=== PATIENT | female | born 1935 | race Caucasian/White ===

== ENCOUNTER 2017-07-01 17:43 | Observation (INO) | payer MEDICARE, BC ==
[2017-07-01] MEDS ORDERED: IPRATROPIUM/ALBUTEROL (0.5MG/3MG) NEB INH ONE (17:51)
[2017-07-01] MEDS ORDERED: METHYLPREDNISOLONE PF 125MG/VIAL IVP ONE (18:19)
--- NOTE | 2017-07-01 18:23 | Emergency Department Record ---
History of Present Illness - General Chief Complaint: Cough Stated Complaint: SANKET Time Seen by Provider: 07/01/17 18:12 Source: Patient, Family Mode of Arrival: Ambulatory Limitations: No limitations - History of Present Illness Initial Comments: 81 yo female presents with a cough, short of breath and feeling tired since Thursday. She has a history of asthma. She has used her nebulizer 2 times daily without improvement. She is not a smoker. No history of CAD. Her cough is fairly persistent. It is non productive. No fever. No chest pain. She does note be short of breath with normal house hold activity. PCP is in [place]. MD Complaint: Cough Onset/Timin -: Days(s) (4) Quality: Other Consistency: Constant Improves With: Rest Worsens With: Activity Associated Symptoms: Cough, Other (weak, tired, dizzy, ) Treatments Prior to Arrival: Other (Nebulizer) - Related Data Home Medications Medication Instructions Recorded Confirmed Last Taken Ranitidine HCl [Zantac] 150 mg PO DAILY 07/01/17 07/01/17 Unknown Allergies Allergy/AdvReac Type Severity Reaction Status Date / Time No Known Allergies Allergy no Verified 07/01/17 18:35 allergies Travel Screening - Travel/Exposure Within Last 30 Days Have you traveled within the last 30 days?: No Review of Systems Constitutional: Reports: Malaise, Weakness. Denies: Chills, Fever Eyes: Denies: Eye discharge, Eye pain, Photophobia, Vision change ENT: Reports: Congestion. Denies: Throat pain Respiratory: Reports: Cough, Dyspnea, Wheezes. Denies: Stridor Cardiovascular: Denies: Chest pain, Palpitations, Syncope Endocrine: Reports: Polydipsia. Denies: Fatigue, Polyuria Gastrointestinal: Denies: Abdominal pain, Constipation, Diarrhea, Nausea, Vomiting Genitourinary: Denies: Dysuria, Urgency Musculoskeletal: Denies: Arthralgia, Back pain, Joint swelling, Myalgia Skin: Denies: Bruising, Change in color, Rash Neurological: Reports: Vertigo, Weakness. Denies: Abnormal gait, Confusion, Headache, Numbness, Paresthesias, Tingling, Tremors Psychiatric: Denies: Anxiety Hematological/Lymphatic: Denies: Blood Clots, Easy bleeding, Easy bruising, Swollen glands Past Medical History - SOCIAL HISTORY Smoking Status: Never smoker Alcohol Use: None Drug Use: None - RESPIRATORY Hx Respiratory Disorders: Yes Hx Asthma: Yes - CARDIOVASCULAR Hx Cardio Disorders: No - NEURO Hx Neuro Disorders: No - GI Hx GI Disorders: Yes Hx Reflux: Yes - Hx Genitourinary Disorders: No - ENDOCRINE Hx Endocrine Disorders: No - MUSCULOSKELETAL Hx Musculoskeletal Disorders: No - PSYCH Hx Psych Problems: No - HEMATOLOGY/ONCOLOGY Hx Hematology/Oncology Disorders: No Family Medical History Any Significant Family History?: No Physical Exam - General General Appearance: Alert, Oriented x3, Cooperative, No acute distress Limitations: No limitations - Head Head exam: Normal inspection - Eye Eye exam: Normal appearance, PERRL. negative: Conjunctival injection, Scleral icterus - ENT ENT exam: Normal exam, Mucous membranes moist Ear exam: Normal external inspection Nasal Exam: Discharge (clear) Mouth exam: Normal external inspection Teeth exam: Normal inspection. negative: Dental caries Throat exam: negative: Normal inspection, Tonsillar erythema, Tonsillomegaly, R peritonsillar mass - Neck Neck exam: Normal inspection, Full ROM. negative: Tenderness - Respiratory Respiratory exam: Decreased breath sounds, Prolonged expiratory, Rhonchi, Wheezes. negative: Normal lung sounds bilaterally, Accessory muscle use, Respiratory distress, Stridor - Cardiovascular Cardiovascular Exam: Normal rhythm, Tachycardia Peripheral Pulses: 2+: Radial (R), Radial (L) - GI/Abdominal GI/Abdominal exam: Soft. negative: Guarding, Rigid, Tenderness - Rectal Rectal exam: Deferred - exam: Deferred - Extremities Extremities exam: Normal inspection, Full ROM, Normal capillary refill. negative: Tenderness - Back Back exam: Reports: Normal inspection, Full ROM. Denies: Muscle spasm, Rash noted, Tenderness - Neurological Neurological exam: Alert, Normal gait, Oriented X3 - Psychiatric Psychiatric exam: Normal affect, Normal mood - Skin Skin exam: Dry, Intact, Normal color, Warm Course Vital Signs 07/01/17 07/01/17 07/01/17 17:44 17:52 17:55 Temperature 100.1 F H Pulse Rate 115 H 88 Pulse Rate [ 107 H Pulse Ox Probe] Respiratory 18 16 Rate Blood Pressure 141/69 Pulse Ox 88 L 94 L 94 L - Reevaluation(s) Reevaluation #1: EKG sinus tachycardia rate 127, intervals normal, axis left, ST NS changes, poor R wave. 07/01/17 18:59 07/01/17 19:08 The CBC was reviewed No acute changes The Influenza A is positive. (She did have a flu shot) 07/01/17 19:09 The CXR was reviewed and was negative 07/01/17 19:38 The Troponin was negative The BNP was 263 07/01/17 20:06 The patient had and ambulation trial. Her oxygen levels dropped to the upper 80 's, HR 130, RR 25-30. Given her age, underlying asthma, and vitals I SW Dr Flores regarding admission Medical Decision Making - Lab Data Result diagrams: 07/01/17 18:35 07/01/17 18:35 Disposition Disposition: Admit Clinical Impression: Influenza A, Hypoxia Asthma exacerbation Qualifiers: Asthma severity: moderate Asthma persistence: unspecified Qualified Code(s): J45.901 - Unspecified asthma with (acute) exacerbation Disposition: Still a Patient at [facility] Decision to Admit: Admit from ER Decision to Admit Date: 07/01/17 Decision to Admit Time: 20:08 Condition: (2) Stable Forms: Patient Portal Access Time of Disposition: 20:08 Quality - Quality Measures Quality Measures: N/A - Blood Pressure Screening Does Patient Have Any of the Following: No Blood Pressure Classification: Hypertensive Reading Systolic Measurement: 141 Diastolic Measurement: 69 Screening for High Blood Pressure: < Pre-Hypertensive BP, F/U Documented > [ [id number]] Pre-Hypertensive Follow-up Interventions: Referral to alternative/primary care provider.
[2017-07-01 18:50] LABS: HEMATOCRIT 39.9 % (35.0-47.0); HEMOGLOBIN 12.7 gm/dl (11.6-16.0); MEAN CELL VOLUME 92.1 fl (81-97); MEAN CORPUSCULAR HEMOGLOBIN 29.3 pg (27-33); MEAN CORPUSCULAR HGB CONC 31.8 g/dl (32-36); PLATELET COUNT 209 K/uL (130-400); RED BLOOD COUNT 4.33 M/uL (3.80-5.40); RED CELL DISTRIBUTION WIDTH 14.1 % (11.5-14.5); WHITE BLOOD COUNT W/O DIFF 6.3 K/uL (4.2-12.2)
[2017-07-01 19:02] LABS: INFLUENZA A POSITIVE (NEGATIVE); INFLUENZA B NEGATIVE (NEGATIVE)
[2017-07-01] MEDS ORDERED: OSTELTAMIVIR 75 MG CAP PO ONE (19:07)
[2017-07-01] MEDS ORDERED: ACETAMINOPHEN 500 MG TABLET PO ONE (19:07)
[2017-07-01 19:13] LABS: BLOOD UREA NITROGEN 18 mg/dL (8-23); CREATININE 0.9 mg/dL (0.5-0.9); EST GLOMERULAR FILTRATION RATE > 60 mL/min
[2017-07-01 19:14] LABS: TOTAL PROTEIN 6.5 g/dL (6.6-8.7)
[2017-07-01 19:16] LABS: GLUCOSE,RANDOM 132 mg/dL (74-109)
[2017-07-01 19:18] LABS: ALB/GLOB RATIO 1.7 (1.1-1.8); ALBUMIN 4.1 g/dL (4.0-5.0); ALKALINE PHOSPHATASE 94 U/L (35-104); ALT/SGPT 13 U/L (<33); AST/SGOT 17 U/L (10.0-35.0)
[2017-07-01] MEDS ORDERED: ACETAMINOPHEN 500 MG TABLET PO PRN (20:24)
[2017-07-01] MEDS: OSTELTAMIVIR 75 MG CAP PO SCH (22:30)
[2017-07-01] MEDS: BENZONATATE 100 MG CAPSULE PO PRN (22:30)
[2017-07-01] MEDS: ALBUTEROL SULFATE (0.083%) 2.5 MG/3 ML NEB INH SCH (22:40)
[2017-07-01] MEDS: IPRATROPIUM/ALBUTEROL (0.5MG/3MG) NEB INH SCH (22:40)
[2017-07-02] MEDS: IPRATROPIUM/ALBUTEROL (0.5MG/3MG) NEB INH SCH ×3 (05:19→13:51)
[2017-07-02] MEDS: ALBUTEROL SULFATE (0.083%) 2.5 MG/3 ML NEB INH SCH (05:19)
[2017-07-02] MEDS: BREO (FLUTICASONE/VILANTEROL) 200MCG/25MCG INHALER INH SCH ×2 (05:29→10:50)
[2017-07-02] MEDS ORDERED: ALBUTEROL SULFATE (0.083%) 2.5 MG/3 ML NEB INH PRN (07:13)
[2017-07-02] MEDS ORDERED: METHYLPREDNISOLONE PF 125MG/VIAL IVP SCH (10:00)
[2017-07-02] MEDS ORDERED: MONTELUKAST SODIUM 10MG TABLET PO SCH ×2 (10:00→22:00)
[2017-07-02] MEDS ORDERED: RANITIDINE HCL 150 MG TABLET PO SCH (10:00)
[2017-07-02] MEDS ORDERED: ENOXAPARIN 40 MG/0.4 ML SYR SC SCH (10:00)
[2017-07-02] MEDS: OSTELTAMIVIR 75 MG CAP PO SCH (10:53)
[2017-07-02] MEDS: BENZONATATE 100 MG CAPSULE PO PRN (10:53)
--- NOTE | 2017-07-02 17:24 | Discharge Note ---
VTE H&P Assessment - Risk for VTE Risk for VTE: Yes Risk Level: Low Risk Assessment Date: 07/02/17 Risk Assessment Time: 09:00 VTE Orders Placed or Will Be Placed: Yes Discharge Medications - Discharge Medications Prescriptions: Oseltamivir Phosphate [Tamiflu] 75 mg PO BID #10 capsule Home Medications: Ambulatory Orders Albuterol Sulfate 1 inh INH ASDIR 25 Days #225 02/25/17 [Last Taken Unknown] Budesonide/Formoterol Fumarate [Symbicort 160-4.5 Mcg Inhaler] 1 inh INH DAILY 90 Days #31 02/25/17 [Last Taken 07/01/17] Montelukast Sodium 10 mg PO QHS 90 Days #90 02/25/17 [Last Taken Unknown] Ranitidine HCl [Zantac] 150 mg PO BID 07/01/17 [Last Taken Unknown] Acetaminophen [Tylenol 500Mg Tab] 500 mg PO Q6H PRN tablet 07/02/17 [Last Taken Unknown] Albuterol Sulfate 0.083% [Neb] 2.5 mg INH [id number].[id number] PRN nebulization solution 07/02/17 [Last Taken Unknown] Oseltamivir Phosphate [Tamiflu] 75 mg PO BID #10 capsule 07/02/17 [Last Taken Unknown] Discharge Note - Date Date of Discharge Note: 07/02/17 Condition: (2) Stable Additional Instructions: follow up with Dr. Siegel in one week Prescriptions: Oseltamivir Phosphate [Tamiflu] 75 mg PO BID #10 capsule Referrals: TUYET SIEGEL [Primary Care Provider] - Forms: Patient Portal Access
--- NOTE | 2017-07-02 19:55 | RADIOLOGY REPORT ---
EXAM: CHEST 2 VIEWS HISTORY: CHEST PAIN. TECHNIQUE: Frontal and lateral views of the chest. COMPARISON: None. FINDINGS: The heart size is normal. Mild atheromatous change thoracic aorta. Osteopenia. The lungs are clear. No pneumothorax. IMPRESSION: NO ACUTE CARDIOPULMONARY PROCESS. JOB NUMBER: [id number] MTDD
--- NOTE | 2017-07-03 12:30 | Discharge Summary ---
DATE OF DISCHARGE: 07/02/2017, 5:30 p.m. DISCHARGE DIAGNOSES: 1. Influenza, type A. 2. Hypoxia, resolved. ATTENDING PHYSICIAN: Scotty Flores D.O. REASON FOR HOSPITALIZATION: Cough, cold, congestion, and fever. She was evaluated in the emergency department by Dr. Vasquez, and her pulse ox was running 88-90%. He was concerned about her oxygen requirements. He wanted her admitted to the hospital for oxygen, Tamiflu, and further evaluation. SIGNIFICANT FINDINGS FROM EXAMINATION: Chest x-ray: Nothing acute on the chest x-ray, osteopenia. Laboratory: Influenza A was positive. WBC 6300, hemoglobin 12.7, potassium 3.7, BUN 18, creatinine 0.9. THERAPY PROVIDED: Patient was given IV fluids, given Tamiflu 75 mg b.i.d. p.o., given a dose of Solu-Medrol in the emergency department, 125, and 60 mg on the floor, and she was given breathing treatments, with Tessalon Perles for her cough, and her home medications. She is much better. She is eating, walking around. The fever has dissipated, and she has occasional coughing jags, but nothing like last night. She is doing much better. She ambulated in the hallway. Her pulse ox never dropped below 89%. CONDITION AT DISCHARGE: Much improved. DISCHARGE INSTRUCTIONS: Follow up with Dr. Sveta Wilson in 1 week. Tamiflu 75 mg b.i.d. for 5 days. Continue her Singulair 10 mg a day, Symbicort 160/4.5 mg 1 puff b.i.d., albuterol nebulization every 4 hours, and Zantac 150 mg b.i.d., and Tylenol p.r.n. CC: Bk [place]
--- NOTE | 2017-07-03 12:30 | History and Physical Report ---
DATE: 07/02/2017 at 8:37 a.m. CHIEF COMPLAINT: Cough, short of breath, and fever. HISTORY OF PRESENT ILLNESS: This 81-year-old female states that she was dizzy, coughing, no appetite, tired for 3 days. She does have asthma and uses inhalers and nebulizers. She is short of breath at times. Her fever is 100.1. She was seen in the emergency department by Dr. Vasquez, diagnosed with influenza, admitted to the hospital for oxygen therapy because her pulse ox was running around 88% to 89%. PAST MEDICAL HISTORY: Asthma, GERD. PAST SURGICAL HISTORY: None. MEDICATIONS: 1. Zantac 150 mg b.i.d. 2. Singulair 10 mg at bedtime. 3. Symbicort 160/4.5 one puff b.i.d. 4. Albuterol nebulization nebulizers every 4 hours while awake. 5. Tylenol p.r.n. ALLERGIES: No known allergies. FAMILY/PSYCHOSOCIAL HISTORY: No significant family history. Never smoked. No alcohol or drug use. REVIEW OF SYSTEMS: HEENT: See Chief Complaint. She has congestion, cough, body aches, and fever. Cardiovascular: No chest pain, palpitations, or arrhythmia. Respiratory: She is short of breath with wheezing, coughing. Gastrointestinal: No nausea, vomiting, diarrhea, black stools, or bloody stools. Genitourinary: No dysuria, hematuria, frequency, or burning on urination. Musculoskeletal: No joint or bone abnormalities. Neurological: No CVA, paralysis, or paresthesias. Endocrine: No diabetes or thyroid disease. Integument: No rash, ulcers, change in moles, or yellow skin. Gynecological: No lumps in her breasts or abnormal vaginal bleeding. PHYSICAL EXAMINATION: VITALS: Height 5 feet 4 inches, weight 185 pounds, temperature 99.1, pulse 103, blood pressure 103/50. Pulse ox 93% on room air, on ambulation she drops down to 89% to 90%. No respiratory problems with that. HEENT: Pupils are equal, round, and reactive to light and accommodation. Extraocular muscles are intact. Throat is clear. Nose is clear. Tympanic membranes are duncan. NECK: Supple. No jugular venous distention. No hepatojugular reflux. No carotid bruits. Thyroid is smooth. CARDIOVASCULAR: Regular rate and rhythm without murmurs, clicks, rubs, or gallops. RESPIRATORY: Some scant wheezing on deep inspiration and a spasmodic cough. ABDOMEN: Soft, nontender. No hepatosplenomegaly, no masses, no tenderness. Bowel sounds are active. No bruits. EXTREMITIES: No pitting edema. No cyanosis, no clubbing. Full range of motion. Peripheral pulses are good. BREASTS: Deferred. GYNECOLOGICAL: Exam deferred. RECTAL: Exam deferred. NEUROLOGIC: Cranial nerves II-XII intact. No gross defects. Sensation normal, strength normal. Deep tendon reflexes equal bilaterally with Babinski negative. MENTAL STATUS: Alert and oriented x3. IMPRESSION: Influenza type A. PLAN: Tamiflu 75 mg b.i.d., IV fluids. She received some Solu-Medrol in the emergency department. Oxygen administration. We will evaluate to see if her oxygen is necessary at this time. MTDD
== END 2017-07-02 18:35 | disposition home or self-care (01) ==
LOC: ER 17:43 → MEDSURG 20:26 → UNDOADMOB 20:26 → INTOOBSV 20:26 → MEDSURG 07-02 17:18 → UNDODISOB 07-02 18:35
PROVIDERS: ADMIT Emergency Medicine; ATTEND Emergency Medicine
DX: J10.1 Influenza due to other identified influenza virus with other respiratory manifestations (principal); J45.909 Unspecified asthma, uncomplicated; K21.9 Gastro-esophageal reflux disease without esophagitis
CPT/HCPCS: 93041; 99285 ×2; 96374; 80053; 87400; 84484; 85027; 83880; 71046; 94640 ×3; 94620; 94761; 94760; 93005; 93010; G0378; 99220; J1650; J2930